=== PATIENT | female | born 2000 | race Caucasian/White ===

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

== ENCOUNTER 2024-10-21 04:35 | Emergency (ER) | payer OTHER ==
[2024-10-21 04:44] VITALS: BP 134/94; PULSE 106; RESP 20; TEMP 98.2; BMI 39.5
[2024-10-21] MEDS ORDERED: FAMOTIDINE 20 MG/50 ML IVPB 20 MG/50 ML MG IVPB ONE (05:24)
[2024-10-21] MEDS ORDERED: ACETAMINOPHEN INJECTION 100 ML ONE (05:24)
[2024-10-21] MEDS: ACETAMINOPHEN 1000 MG/100 ML BAG IVPB ONE (05:27)
[2024-10-21] MEDS: FAMOTIDINE 20 MG/50 ML IVPB 20 MG/50 ML MG IVPB ONE (05:28)
[2024-10-21 06:04] LABS: CO2 24.0 mmol/L (21-32); GLUCOSE,RANDOM 108.0 mg/dL (74-106)
[2024-10-21 06:06] LABS: SGOT/AST 16.0 U/L (15-37); SGPT/ALT 23.0 U/L (13-61)
[2024-10-21 06:07] LABS: CREATININE 0.9 mg/dL (0.55-1.3); TOT PROT 7.2 g/dl (6.4-8.2)
[2024-10-21 06:09] LABS: ALK PHOS 80.0 U/L (45-117)
[2024-10-21 06:11] LABS: ABSOLUTE IMMATURE GRANULOCYTES 0.03 x10^3/uL (0.0-0.031); BASOPHILS # 0.03 x10^3/uL (0.01-0.08); EOSINOPHIL % 0.7 % (0.7-5.8); EOSINOPHILS # 0.08 x10^3/uL (0.04-0.36); MCHC 32.3 g/dl (32.2-35.5); MEAN CELL VOLUME 83.5 fl (79.4-94.8); MEAN PLT VOLUME 10.3 fl (9.4-12.3); MONOCYTE # 1.04 x10^3/uL (0.24-0.86); MONOCYTE % 8.9 % (4.7-12.5); RDW 12.5 % (12.1-16.5)
[2024-10-21 06:43] LABS: HIV INTERPRETATION NEGATIVE (NEGATIVE)
[2024-10-21 06:44] LABS: HCV DIAGNOSTIC IN-HOUSE W/RFLX NON-REACTIVE (NONREACTIVE)
== END 2024-10-21 06:36 | disposition home or self-care (01) ==
LOC: JER 04:35
PROC: 3E033GC Introduction of Other Therapeutic Substance into Peripheral Vein, Percutaneous Approach (ICD-10-PCS; principal; 2024-10-21)
PROC: 3E033NZ Introduction of Analgesics, Hypnotics, Sedatives into Peripheral Vein, Percutaneous Approach (ICD-10-PCS; 2024-10-21)
DX: R10.13 Epigastric pain (principal); R19.7 Diarrhea, unspecified; R11.0 Nausea
CPT/HCPCS: 36415; 80053; 83690; 84703; 85025; 86803; 87389; 99284-25